=== PATIENT | male | born 1980 | race Caucasian/White ===

== ENCOUNTER 2023-08-06 13:40 | Emergency (ER) | payer OTHER, BC, SELFPAY ==
[2023-08-06] VITALS (8 sets, daily range): BP systolic 118–144; BP diastolic 73–95; PULSE 78–97; RESP 16; TEMP 36.4; O2SAT 98–100
[2023-08-06 16:16] LABS: Basophils Absolute Auto 0.1 K/mm3 (0.0-0.1); Basophils Percent Auto 0.7 % (0.2-1.2); Eosinophils Absolute Auto 0.2 K/mm3 (0-0.3); Eosinophils Percent Auto 2.2 % (0-4.4); Hematocrit 46.4 % (42.0-52.0); Immature Granulocyte Absolute 0.03 K/mm3 (0.00-0.031); Immature Granulocyte Percent A 0.3 % (0-0.5); Lymphocytes Absolute Auto 2.51 K/mm3 (0.9-3.2); Lymphocytes Percent Auto 26.4 % (18.3-44.2); Mean Corpuscular HGB Conc 34.5 g/dl (32-36); Mean Corpuscular Hemoglobin 30.7 pg (26-34); Mean Corpuscular Volume 88.9 fl (80-100); Mean Platelet Volume 9.9 fl (7.4-10.4); Monocytes Absolute Auto 0.9 K/mm3 (0.1-0.6); Monocytes Percent Auto 9.3 % (2.6-8.5); Neutrophils Absolute Auto 5.8 K/mm3 (1.3-6.7); Neutrophils Percent Auto 61.1 % (45.5-73.1); Platelet Count Result 233 k/mm3 (150-375); Red Blood Count 5.22 M/mm3 (4.6-6.20); Red Cell Distribution Width 12.8 % (11.5-14.5); White Blood Count 9.5 K/mm3 (4.5-10.0)
[2023-08-06 16:19] LABS: Glucose Point of Care 191 mg/dl (65-105)
--- NOTE | 2023-08-06 16:19 | ED.GENADULT ---
HPI - General Adult General Chief complaint: Extremity Problem,Nontraumatic Stated complaint: cellulitis right leg Time Seen by Provider: 08/06/23 15:41 Source: patient, RN notes reviewed and old records reviewed Mode of arrival: ambulatory Limitations: no limitations History of Present Illness HPI narrative: This is a 43 year old male with history of DM who presents for evaluation of possible right leg cellulitis. Patient states he has had right buttock abscess for 4 days that has been draining. He states his abscess was feeling better but then he noticed red rash to his right lower leg. He reports some drainage from the rash. He states this rash does not itch so he thinks he has cellulitis. He has also noticed that his blood sugars have been elevated to 400s over the past 4 days. He states his blood sugars are normally controlled. His last hemoglobin A1C was 7. He denies fever, chills, nausea, vomiting. Related Data Allergies Allergy/AdvReac Type Severity Reaction Status Date / Time No Known Allergies Allergy Verified 08/06/23 17:23 Review of Systems Constitutional: Constitutional: Denies weakness Cardiovascular: Cardiovascular: Denies syncope, Denies rapid heart rate, Denies irregular heart rhythm, Denies leg edema and Denies dyspnea Respiratory: Respiratory: Denies chest congestion, Denies hemoptysis, Denies excessive phlegm production and Denies dyspnea Gastrointestinal: Gastrointestinal: Denies abdominal pain, Denies hematochezia, Denies diarrhea and Denies vomiting Genitourinary: Genitourinary: Denies hematuria, Denies dysuria, Denies penile discharge and Denies testicular pain Musculoskeletal: Musculoskeletal: Denies joint swelling, Denies loss of height and Denies muscle weakness Integumentary/Breasts: Skin/Breast: Reports rash Neurologic: Denies syncope, Denies focal weakness and Denies weakness PMFSH Past Medical History Medical History (Updated 08/07/23 @ 00:00 by Background Daemon) Abscess Diabetes mellitus Hypertension Social History Social History (Updated 08/06/23 @ 16:20 by Shelley Lam MD) Smoking status: Current every day smoker Exam Const: General: no acute distress and alert Nutritional Appearance: well nourished Orientation/consciousness: patient oriented x3 HENMT: Head: normal to inspection Eyes: EOM: EOMs intact bilaterally Resp: Effort & Inspection: normal respiratory effort Cardio: Rate: regular rate Rhythm: regular rhythm Heart sounds: no murmurs GI: GI Palp: Yes Soft to palpation, No Tenderness to palpation present (GI), No Guarding due to palpation present (GI) and No Rigid due to palpation Auscultation: normal bowel sounds Skin: Wounds: wounds noted (right buttock with purulent draining abscess. no tenderness, ) Other: no necrotic tissue, no erythema right lower anterior leg with erythematous rash Neuro: General: patient oriented x3, moves all extremities and CN's II-XI intact bilaterally Extrem: General: no pedal edema Psych: Mental Status: mental status grossly normal Affect: normal affect Attitude: cooperative Course Reevaluation(s) Reevaluation #1: Patient labs are unremarkable. I discussed with patient that at this time there does not appear to be evidence of deep i nfection so agreeable with outpatient treatment at this time. I discussed return precaution if noticed skin color changes like necrosis, fever, vomiting, weakness. He states he understands return precautions. Date: 08/06/23 Time: 17:20 Vital Signs Vital signs: Vital Signs Temperature 97.5 F L 08/06/23 13:51 Pulse Rate 97 08/06/23 13:51 Respiratory Rate 16 08/06/23 13:51 Blood Pressure 142/83 H 08/06/23 13:51 Pulse Oximetry 98 08/06/23 13:51 Temperature 97.6 F 08/06/23 15:05 Pulse Rate 78 08/06/23 15:05 Respiratory Rate 16 08/06/23 15:05 Blood Pressure 119/81 08/06/23 17:01 Pulse Oximetry 100 08/06/23 15:05 Medical Carlyleisrose
[2023-08-06] MEDS: SODIUM CHLORIDE 0.9% IV 1,000 ML 999 ML IV CONT (16:20)
[2023-08-06 16:25] LABS: Lactic Acid Reflex 1.4 mmol/L (0.7-2.0)
[2023-08-06 16:31] LABS: Partial Thromboplastin Time 31.4 SECONDS (22.3-36.8); Prothrombin Time 13.3 Seconds (11.1-14.7)
[2023-08-06 16:32] LABS: Alanine Aminotransferase 18 U/L (6-50); Albumin Level 3.9 g/dL (3.5-5.1); Alkaline Phosphatase 79 U/L (38-126); Anion Gap 9 mmol/L (8-16); Aspartate Amino Transferase 23 U/L (17-59); Bilirubin,Total 0.6 mg/dL (0.2-1.3); Blood Urea Nitrogen 17 mg/dL (9-20); CRP 0.8 mg/dL (<1.0); Calcium 8.9 mg/dL (8.4-10.2); Carbon Dioxide 23 mmol/L (22-30); Chloride 102 mmol/L (98-107); Estimated CRCL calculation 125 ml/min; Estimated Glomerular Filt Rate > 60; Glucose 182 mg/dL (65-110); Potassium 4.4 mmol/L (3.4-5.0); Sodium 134 mmol/L (137-145)
[2023-08-06] MEDS: AMOXICILLIN/CLAVULANATE K 875-125 MG TAB 1 TABLET PO (17:24)
== END 2023-08-06 17:31 | disposition home or self-care (01) ==
PROVIDERS: Emergency Provider General Practice
DX: R21 Rash and other nonspecific skin eruption (principal); L02.31 Cutaneous abscess of buttock; E11.9 Type 2 diabetes mellitus without complications; I10 Essential (primary) hypertension; F17.200 Nicotine dependence, unspecified, uncomplicated
CPT/HCPCS: 36415; 80053; 82948; 83605; 85025; 85610; 85730; 86140; 96360; 99283; A9270; J7030

== ENCOUNTER 2024-05-23 09:15 | Outpatient (CLI) | payer OTHER, BC, SELFPAY ==
[2024-05-23 18:51] LABS: Basophils Absolute Auto 0.1 K/mm3 (0.0-0.1); Basophils Percent Auto 0.8 % (0.2-1.2); Eosinophils Absolute Auto 0.1 K/mm3 (0-0.3); Eosinophils Percent Auto 1.2 % (0-4.4); Hematocrit 49.6 % (42.0-52.0); Hemoglobin 17.2 g/dL (14.0-18.0); Immature Granulocyte Absolute 0.04 K/mm3 (0.00-0.031); Immature Granulocyte Percent A 0.4 % (0-0.5); Lymphocytes Absolute Auto 2.68 K/mm3 (0.9-3.2); Lymphocytes Percent Auto 24.5 % (18.3-44.2); Mean Corpuscular HGB Conc 34.7 g/dl (32-36); Mean Corpuscular Hemoglobin 30.3 pg (26-34); Mean Corpuscular Volume 87.3 fl (80-100); Mean Platelet Volume 10.1 fl (7.4-10.4); Monocytes Absolute Auto 0.8 K/mm3 (0.1-0.6); Monocytes Percent Auto 7.3 % (2.6-8.5); Neutrophils Absolute Auto 7.2 K/mm3 (1.3-6.7); Neutrophils Percent Auto 65.8 % (45.5-73.1); Platelet Count Result 260 k/mm3 (150-375); Red Blood Count 5.68 M/mm3 (4.6-6.20); Red Cell Distribution Width 12.8 % (11.5-14.5); White Blood Count 10.9 K/mm3 (4.5-10.0)
[2024-05-23 18:58] LABS: Alanine Aminotransferase 22 U/L (6-50); Albumin Level 4.1 g/dL (3.5-5.1); Alkaline Phosphatase 110 U/L (38-126); Anion Gap 10 mmol/L (4-12); Aspartate Amino Transferase 36 U/L (17-59); Bilirubin,Total 0.5 mg/dL (0.2-1.3); Blood Urea Nitrogen 14 mg/dL (9-20); Calcium 9.8 mg/dL (8.4-10.2); Carbon Dioxide 25 mmol/L (22-30); Chloride 99 mmol/L (98-107); Cholesterol 237 mg/dL (0-200); Estimated Glomerular Filt Rate > 60; Glucose 301 mg/dL (65-110); HDL Direct 38 mg/dL; Potassium 4.5 mmol/L (3.4-5.0); Sodium 134 mmol/L (137-145); Triglycerides 230 mg/dL (<150)
[2024-05-23 19:11] LABS: LDL Cholesterol Direct 150 mg/dL
[2024-05-23 20:59] LABS: Hemoglobin A1C 9.3 % (<5.7)
[2024-05-24 14:00] LABS: Creatinine Urine 165.8 mg/dL
[2024-05-24 14:04] LABS: MALB Creatinine Ratio 7.4 mg/g (0-30); Microalbumin Urine Random 12.2 mg/L (0-16.7)
[2024-05-26 15:43] LABS: Testosterone Free 73.3 pg/mL (35.0-155.0); Testosterone Total 264 ng/dL (250-1100)
[2024-06-02 19:04] LABS: Apolipoprotein B 146 mg/dL
== END 2024-05-23 09:16 | disposition home or self-care (01) ==
LOC: ANHGOSHLAB 09:18
PROVIDERS: PCP Internal Medicine; Visit Provider Internal Medicine
DX: I10 Essential (primary) hypertension (principal); E11.9 Type 2 diabetes mellitus without complications; N52.9 Male erectile dysfunction, unspecified
CPT/HCPCS: 36415; 80053; 80061; 82043; 82172; 83036; 84402; 84403; 85025

== ENCOUNTER 2024-06-16 08:06 | Outpatient (CLI) | payer OTHER, BC, SELFPAY ==
--- NOTE | ~2024-06-16 | MR_ITS ---
EXAMINATION: MR shoulder LT wo con DATE: 06/16/2024 08:48 INDICATION: Left shoulder pain. Rotator cuff tear. Adhesive capsulitis. TECHNIQUE: Magnetic resonance imaging (MRI) of the affected shoulder was performed without intravenou s contrast. Sequences included axial PD-weighted FS FSE, coronal oblique PD-weighted FS FSE, coronal oblique T2-weighted FS FSE, sagittal PD-weighted FS FSE, and sagittal T1-weighted SE. COMPARISON: None. FINDINGS: Coracoacromial arch: The acromion undersurface is curved in morphology (type II). The coracoacromial ligament is normal. M oderate acromioclavicular osteoarthritis. Rotator cuff: Mild supraspinatus tendinopathy without discrete tear. The interspaces, teres minor and subscapularis tendons are normal. No asymmetric rotator cuff muscle atrophy. There is mild epimysial edema at the medial side of the subscapularis muscle belly which could be seen with low-grade muscle strain. Biceps tendon, glenoid labrum and glenohumeral cartilage: Long head of the biceps tendon is normal. Glenoid labrum is normal. Glenohumeral cartilage is normal. Fluid: Physiologic amount of fluid in the glenohumeral joint and biceps tendon sheath. No loose osteochondr al bodies. Mild increased fluid signal in the subacromial/subdeltoid bursa consistent with minimal bu rsitis. Bones and other: Bone alignment is normal. No fracture or pathologic marrow replacing process. There is thickening of the right humeral joint capsule at the axillary recess and thickened soft tissue replacing the normal fat signal at the rotator cuff interval, both findings which can be seen in a semiinvasive capsuliti s which is a clinical diagnosis. IMPRESSION: 1. Mild supraspinatus tendinopathy without tear. 2. Mild epimysial edema at the medial side of the supraspinatus muscle belly consistent with low-grad e muscle strain. 3. Moderate acromioclavicular osteoarthritis. 4. Thickening of the internal capsule at the axillary recess and thickened soft tissue at the rotator cuff interval, both findings which can be seen with adhesive capsulitis which is a clinical diagnosi s. Reviewed, dictated and finalized at location A. IMPRESSION: 1. Mild supraspinatus tendinopathy without tear. 2. Mild epimysial edema at the medial side of the supraspinatus muscle belly co nsistent with low-grade muscle strain. 3. Moderate acromioclavicular osteoarthritis. 4. Thickening of the internal capsule at the axillary recess and thickened soft tissue at the rotator cuff interval, both findings which can be seen with adhe sive capsulitis which is a clinical diagnosis.
== END 2024-06-16 08:07 ==
LOC: GOSHIMG 08:06
PROVIDERS: PCP Internal Medicine; Visit Provider Internal Medicine
DX: M75.02 Adhesive capsulitis of left shoulder (principal); M75.102 Unspecified rotator cuff tear or rupture of left shoulder, not specified as traumatic; R60.9 Edema, unspecified; M19.012 Primary osteoarthritis, left shoulder
CPT/HCPCS: 73221

== ENCOUNTER 2024-08-04 00:40 | Day surgery (SDC) | payer OTHER, BC, SELFPAY ==
[2024-07-18 13:33] VITALS: BMI 32.1
[2024-08-04 09:07] VITALS: BP 150/98; PULSE 86; RESP 16; TEMP 36.1; O2SAT 86; BMI 32.3
[2024-08-04] MEDS: LACTATED RINGERS 1,000 ML 150 ML IV CONT (09:28)
[2024-08-04 09:31] LABS: Glucose Point of Care 140 mg/dl (65-105)
--- NOTE | 2024-08-04 09:52 | WPDANESEPPF ---
Anes - Initial Pre Proc Eval Procedure: Operation Date: 08/04/24 12:30 Proposed Procedures p Screening Colonoscopy - Brenton Martinez DO Date/Time: 08/04/24 09:52 Surgeon: Brenton Martinez DO Pre Op Diagnosis: Screening for malignant neoplasm of colon Patient Data Age: 44 Gender: M Height: 1.8 m Weight: 105 kg Last Vital Signs Temp 97.0 F L 08/04/24 09:07 Pulse 86 08/04/24 09:07 Resp 16 08/04/24 09:07 BP 150/98 H 08/04/24 09:07 Pulse Ox 86 L 08/04/24 09:07 O2 Del Method Room Air 08/04/24 09:07 Allergies Allergy/AdvReac Type Severity Reaction Status Date / Time No Known Allergies Allergy Verified 08/04/24 09:05 Home Medications Medication Instructions Recorded Confirmed Type insulin degludec 200 unit/mL (3 40 unit subcut DAILY 05/23/24 08/04/24 History mL) subcutaneous pen ([facility] [employer] FlexTouch U-200 insulin) lisinopril 20 mg tablet 20 mg PO DAILY 05/23/24 08/04/24 History metformin 1,000 mg tablet 1,000 mg PO BID 05/23/24 08/04/24 History omeprazole 20 mg capsule,delayed 20 mg PO BID 05/23/24 08/04/24 History release pioglitazone 30 mg tablet 30 mg PO DAILY 05/23/24 08/04/24 History tadalafil 20 mg tablet 20 mg PO DAILY PRN sexual activity 05/23/24 08/04/24 Rx #20 tabs rosuvastatin 10 mg tablet 10 mg PO DAILY #90 tabs 06/21/24 08/04/24 Rx semaglutide 2 mg/dose (8 mg/3 mL) 2 mg (0.75 mL) subcut WEEKLY #3 mL 06/21/24 08/04/24 Rx subcutaneous pen injector testosterone cypionate 200 mg/mL 140 mg (0.7 mL) IM WEEKLY #10 mL 06/21/24 08/04/24 Rx intramuscular oil (Depo-Testosterone) syringe with needle 3 mL 25 x 5/8 #50 ea 06/29/24 08/04/24 Rx (BD Eclipse Luer-Niels) Laboratory Tests 08/04/24 09:22 POC Capillary Glucose 140 H mg/dl (65-105) Patient hx anesthesia problems: none Family hx anesthesia problems: none Results Review: All pre-operative results and documents have been reviewed as part of the pre-operative evaluation. [facility] Past Medical History Medical History (Updated 06/21/24 @ 14:07 by Abdullahi Rosario DO) Abscess Adhesive capsulitis of left shoulder Diabetes mellitus Diabetes mellitus with hyperglycemia, with long-term current use of insulin Erectile dysfunction Essential hypertension GERD (gastroesophageal reflux disease) Hypertension Long-term current use of testosterone cypionate Tobacco abuse disorder Family History Family History Father Hypertension Grandparent Hypertension Heart problem Grandparent Heart problem Hypertension Social History Social History Smoking packs per day: 1.5 Smoking cigarettes per day: 30.0 Years smoked: 30 Smoking pack-years: 45.00 Smoking status: Current every day smoker Tobacco type: cigarettes Second hand tobacco smoke exposure: No Alcohol intake: never Substance use: never Substance use type: does not use Do You Feel Safe in your Home?: Yes Lack of Transportation: No Lack of Food: Never True Current Housing: I Have Housing Concerned About Future Housing: No Difficulty Paying Gas/Electric Bills: No Difficulty Paying for Meds: No Currently Unemployed: No Education: High School Diploma/GED Difficulty w/ Childcare or Family Care: No Living arrangements: with family Occupation/Education: occupation Gender identity (if verbalized by the patient): Male Sexual Orientation (if Verbalized by the Patient): Straight or Heterosexual Spiritual care concerns: No Agree to blood products: No Anes - Eval Final PreProcedure Day of Procedure 08/04/24 09:52 Patient weight: obese Heart: regular rate and rhythm Lungs: clear to auscultation Airway: Mallampati scale class II Neurological: alert and oriented Last oral intake: >/= 8 hours ASA classification: III Emergent: no Anesthetic plan: proceed Results R
--- NOTE | 2024-08-04 10:02 | PM.IMHP ---
H&P: HPI History of Present Illness Date/Time: 08/04/24 10:02 Chief Complaint: screening for colorectal cancer Narrative: this is a 44-year-old man who presents for colonoscopy. He has never had a colonoscopy before. He denies any hematochezia or melena but does have some occasional hemorrhoid bleeding. He denies any family history of cancer. Review of Systems Review of Systems: All systems reviewed & are unremarkable except as noted in HPI and below Constitutional: Constitutional: Denies chills, Denies fever(s), Denies headache(s) and Denies weight loss Eyes: Eyes: Denies change in vision ENT: Denies dizziness, Denies headache(s), Denies neck mass and Denies throat swelling Cardiovascular: Cardiovascular: Denies chest pain, Denies lightheadedness and Denies dyspnea Respiratory: Respiratory: Denies cough, Denies dyspnea and Denies wheezing Gastrointestinal: Gastrointestinal: Denies abdominal pain, Denies change in bowel habits, Denies nausea and Denies vomiting Genitourinary: Genitourinary: Denies hematuria and Denies dysuria Musculoskeletal: Musculoskeletal: Reports as per HPI Integumentary/Breasts: Skin/Breast: Reports as per HPI Neurologic: Denies dizziness and Denies headache(s) Allergic/Immunologic: Allergic/Immunologic: Denies throat swelling and Denies wheezing PMF Past Medical History Medical History (Updated 08/04/24 @ 10:03 by Brenton Martinez DO) Abscess Adhesive capsulitis of left shoulder Diabetes mellitus Diabetes mellitus with hyperglycemia, with long-term current use of insulin Erectile dysfunction Essential hypertension GERD (gastroesophageal reflux disease) Hypertension Long-term current use of testosterone cypionate Tobacco abuse disorder Family History Family History Father Hypertension Grandparent Hypertension Heart problem Grandparent Heart problem Hypertension Social History Social History Smoking packs per day: 1.5 Smoking cigarettes per day: 30.0 Years smoked: 30 Smoking pack-years: 45.00 Smoking status: Current every day smoker Tobacco type: cigarettes Second hand tobacco smoke exposure: No Alcohol intake: never Substance use: never Substance use type: does not use Do You Feel Safe in your Home?: Yes Lack of Transportation: No Lack of Food: Never True Current Housing: I Have Housing Concerned About Future Housing: No Difficulty Paying Gas/Electric Bills: No Difficulty Paying for Meds: No Currently Unemployed: No Education: High School Diploma/GED Difficulty w/ Childcare or Family Care: No Living arrangements: with family Occupation/Education: occupation Gender identity (if verbalized by the patient): Male Sexual Orientation (if Verbalized by the Patient): Straight or Heterosexual Spiritual care concerns: No Agree to blood products: No Meds Home Medications and Allergies Home Medications Medication Instructions Recorded Confirmed Type insulin degludec 200 unit/mL (3 40 unit subcut DAILY 05/23/24 08/04/24 History mL) subcutaneous pen ([employer] FlexTouch U-200 insulin) lisinopril 20 mg tablet 20 mg PO DAILY 05/23/24 08/04/24 History metformin 1,000 mg tablet 1,000 mg PO BID 05/23/24 08/04/24 History omeprazole 20 mg capsule,delayed 20 mg PO BID 05/23/24 08/04/24 History release pioglitazone 30 mg tablet 30 mg PO DAILY 05/23/24 08/04/24 History tadalafil 20 mg tablet 20 mg PO DAILY PRN sexual activity 05/23/24 08/04/24 Rx #20 tabs rosuvastatin 10 mg tablet 10 mg PO DAILY #90 tabs 06/21/24 08/04/24 Rx semaglutide 2 mg/dose (8 mg/3 mL) 2 mg (0.75 mL) subcut WEEKLY #3 mL 06/21/24 08/04/24 Rx subcutaneous pen injector testosterone cypionate 200 mg/mL 140 mg (0.7 mL) IM WEEKLY #10 mL 06/21/24 08/04/24 Rx intramuscular oil (Depo-Testosterone) syringe with needle 3 mL
[2024-08-04 10:52] VITALS: BP 115/71; PULSE 81; RESP 20; O2SAT 95
[2024-08-04 11:02] VITALS: BP 110/75; PULSE 80; RESP 18; O2SAT 94
[2024-08-04 11:12] VITALS: BP 131/92; PULSE 78; RESP 19; O2SAT 97
[2024-08-04 11:20] LABS: Glucose Point of Care 120 mg/dl (65-105)
== END 2024-08-04 11:25 | disposition home or self-care (01) ==
PROVIDERS: PCP Internal Medicine; Visit Provider Surgery
PROC: 0DJD8ZZ Inspection of Lower Intestinal Tract, Via Natural or Artificial Opening Endoscopic (ICD-10-PCS; CPT 45378; principal; 2024-08-04 12:30)
DX: Z12.11 Encounter for screening for malignant neoplasm of colon (principal); D12.0 Benign neoplasm of cecum; E11.65 Type 2 diabetes mellitus with hyperglycemia; I10 Essential (primary) hypertension; K21.9 Gastro-esophageal reflux disease without esophagitis; N52.9 Male erectile dysfunction, unspecified; F17.210 Nicotine dependence, cigarettes, uncomplicated; E66.9 Obesity, unspecified; Z68.32 Body mass index [BMI] 32.0-32.9, adult; Z79.4 Long term (current) use of insulin; Z79.84 Long term (current) use of oral hypoglycemic drugs; Z79.85 Long-term (current) use of injectable non-insulin antidiabetic drugs; Z82.49 Family history of ischemic heart disease and other diseases of the circulatory system
CPT/HCPCS: 45385; 82948; 88305; J2003; J2704; J7120

== ENCOUNTER 2024-09-27 08:56 | Outpatient (CLI) | payer BC, SELFPAY ==
[2024-09-27 12:56] LABS: Basophils Absolute Auto 0.1 K/mm3 (0.0-0.1); Basophils Percent Auto 0.9 % (0.2-1.2); Eosinophils Absolute Auto 0.3 K/mm3 (0-0.3); Eosinophils Percent Auto 3.2 % (0-4.4); Hematocrit 48.9 % (42.0-52.0); Hemoglobin 16.4 g/dL (14.0-18.0); Immature Granulocyte Absolute 0.02 K/mm3 (0.00-0.031); Immature Granulocyte Percent A 0.3 % (0-0.5); Lymphocytes Absolute Auto 2.19 K/mm3 (0.9-3.2); Lymphocytes Percent Auto 27.9 % (18.3-44.2); Mean Corpuscular HGB Conc 33.5 g/dl (32-36); Mean Corpuscular Volume 89.4 fl (80-100); Mean Platelet Volume 10.1 fl (7.4-10.4); Monocytes Absolute Auto 0.7 K/mm3 (0.1-0.6); Monocytes Percent Auto 8.8 % (2.6-8.5); Neutrophils Absolute Auto 4.6 K/mm3 (1.3-6.7); Neutrophils Percent Auto 58.9 % (45.5-73.1); Platelet Count Result 253 k/mm3 (150-375); Red Blood Count 5.47 M/mm3 (4.6-6.20); Red Cell Distribution Width 13.1 % (11.5-14.5); White Blood Count 7.9 K/mm3 (4.5-10.0)
[2024-09-27 13:15] LABS: Alanine Aminotransferase 11 U/L (6-50); Alkaline Phosphatase 67 U/L (38-126); Anion Gap 5 mmol/L (4-12); Aspartate Amino Transferase 40 U/L (17-59); Bilirubin,Total 0.6 mg/dL (0.2-1.3); Blood Urea Nitrogen 13 mg/dL (9-20); Carbon Dioxide 23 mmol/L (22-30); Chloride 109 mmol/L (98-107); Cholesterol 178 mg/dL (0-200); Estimated Glomerular Filt Rate > 60; Glucose 137 mg/dL (65-110); HDL Direct 38 mg/dL; Potassium 4.5 mmol/L (3.4-5.0); Sodium 137 mmol/L (137-145); Triglycerides 90 mg/dL (<150)
[2024-09-27 13:42] LABS: LDL Cholesterol Direct 108 mg/dL
[2024-09-27 13:44] LABS: Prostate Specific Antigen 0.7 ng/mL (< OR = 4.0)
[2024-09-27 13:54] LABS: Iron 94 ug/dL (49-181)
[2024-09-27 14:05] LABS: Percent Iron Saturation 25 % (20-50)
[2024-09-27 15:44] LABS: Hemoglobin A1C 7.3 % (<5.7)
[2024-09-28 08:08] LABS: LH 3.6 mIU/mL (1.5-9.3)
[2024-09-30 21:24] LABS: Testosterone Free 70.7 pg/mL (35.0-155.0); Testosterone Total 300 ng/dL (250-1100)
== END 2024-09-27 08:57 | disposition home or self-care (01) ==
LOC: ANHGOSHLAB 08:57
PROVIDERS: PCP Internal Medicine; Visit Provider Internal Medicine
DX: E29.1 Testicular hypofunction (principal); E11.9 Type 2 diabetes mellitus without complications; I10 Essential (primary) hypertension; Z79.890 Hormone replacement therapy
CPT/HCPCS: 36415; 80053; 80061; 82728; 83002; 83036; 83540; 83550; 84153; 84402; 84403; 84443; 85025

== ENCOUNTER 2025-03-31 08:08 | Outpatient (CLI) | payer OTHER, SELFPAY ==
--- OUTSIDE RECORDS SUMMARY | 2025-03-31 08:15 | XMS_ITS | Continuity of Care Document ---
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 . Family [...]
--- OUTSIDE RECORDS SUMMARY | 2025-03-31 08:15 | XMS_ITS | Clinical Summary ---
Author Organization [facility] Address [address] [place] [address] Care Team Providers Care Twenty One Dealer Name Role Phone Unavailable Primary Care Provider Unavailabl e Source Comments [facility],non-owned Affiliates and Associated Physician Practices is amultiple site organization consisting of ambulatory clinics and hospital sitesin [place], [place], [place] and [place]. This disclosure is being madepursuant to the Care Everywhere program and may not contain all information available regarding this patient. Last updated 18.[facility] [employer] Social History Tobacco Use Types Packs/Day Years Used Date Smoking Tobacco: Never Assessed Sex and Gender Information Value Date Recorded Sex Assigned at Not on file Legal Sex Male 1:03 PM CDT Gender Identity Not on file Sexual Orientation Not on file Plan of Treatment Health Maintenance Due Date Last Done Comments COLOGUARD (AGES 45-75) - COL ON CA SCREENING 1978 COLON MONITORING 1978 COLONOSCOPY - COLON CA SCREENING 1978 CT COLONOGRAPHY - COLON CA SCREENING 1978 Colorectal Cancer Screening 1978 FIT - COLON CA SCREENING 1978 FLEX SIG - COLON CA SCREENING 1978 LIPID TESTING 1978 HIV SCREENING 1993 HEPATITIS C SCREENING 07/30/1996 DTAP/TDAP/TD VACCINES (1 - Tdap) 1997 HEPATITIS B VACCINE (1 of 3 - 19+ 3-dose series) 1997 COVID-19 VACCINE (1 - 2023-2 5 season) 2024 DEPRESSION SCREENING 10/26/2024 INFLUENZA VACCINE (Season Ended) 2025 ZOSTER VACCINE (1 of 2) 2028 HIB VACCINE Aged Out No longer eligi ble based on patient's age to complete this topic HPV VACCINE Aged Out No longer eligi ble based on patient's age to complete this topic MENINGOCOCCAL (Group B) VACC INE SHARED DECISION-MAKING Aged Out No longer eligibl e based on patient's age to complete this topic MENINGOCOCCAL GROUPS A/C/Y/W VACCINE Aged Out No longer eligible b ased on patient's age to complete this topic PNEUMOCOCCAL VACCINE Aged Out No long er eligible based on patient's age to complete this topic Insurance [facility] SELF PAY NO INSURANCE Member Subscriber Plan / Payer (Ef fective for All Dates) Name:Marlon Garcia Member ID:Not on file Relation to Subscriber:Not on file Name:MARLON GARCIA Subscriber ID:Not on file (Home) Address: [address] [place] [phone] Payer ID:Not on file Group ID:Not on file Type:Self Pay Address: [place], [place] [employer]
[2025-03-31 12:15] LABS: Basophils Absolute Auto 0.1 K/mm3 (0.0-0.1); Eosinophils Absolute Auto 0.1 K/mm3 (0-0.3); Eosinophils Percent Auto 1.6 % (0-4.4); Immature Granulocyte Absolute 0.02 K/mm3 (0.00-0.031); Immature Granulocyte Percent A 0.2 % (0-0.5); Lymphocytes Percent Auto 27.6 % (18.3-44.2); Mean Corpuscular HGB Conc 32.7 g/dl (32-36); Mean Corpuscular Hemoglobin 29.6 pg (26-34); Mean Corpuscular Volume 90.6 fl (80-100); Mean Platelet Volume 10.1 fl (7.4-10.4); Monocytes Absolute Auto 0.8 K/mm3 (0.1-0.6); Monocytes Percent Auto 9.7 % (2.6-8.5); Neutrophils Percent Auto 59.9 % (45.5-73.1); Platelet Count Result 260 k/mm3 (150-375); Red Blood Count 5.74 M/mm3 (4.6-6.20); White Blood Count 8.3 K/mm3 (4.5-10.0)
[2025-03-31 12:39] LABS: Alanine Aminotransferase 19 U/L (6-50); Albumin Level 4.2 g/dL (3.5-5.1); Alkaline Phosphatase 70 U/L (38-126); Anion Gap 7 mmol/L (4-12); Aspartate Amino Transferase 63 U/L (17-59); Bilirubin,Total 0.3 mg/dL (0.2-1.3); Blood Urea Nitrogen 15 mg/dL (9-20); Calcium 9.5 mg/dL (8.4-10.2); Carbon Dioxide 26 mmol/L (22-30); Chloride 105 mmol/L (98-107); Cholesterol 186 mg/dL (0-200); Estimated Glomerular Filt Rate > 60; Glucose 152 mg/dL (65-110); HDL Direct 35 mg/dL; Potassium 4.7 mmol/L (3.4-5.0); Sodium 138 mmol/L (137-145); Total Protein 7.4 g/dL (6.3-8.2); Triglycerides 122 mg/dL (<150)
[2025-03-31 12:50] LABS: LDL Cholesterol Direct 110 mg/dL
[2025-03-31 13:10] LABS: Prostate Specific Antigen 0.8 ng/mL (< OR = 4.0)
[2025-03-31 13:18] LABS: Creatinine Urine 122.2 mg/dL
[2025-03-31 13:22] LABS: MALB Creatinine Ratio 5.4 mg/g (0-30); Microalbumin Urine Random 6.6 mg/L (0-16.7)
[2025-03-31 13:27] LABS: Hemoglobin A1C 6.2 % (<5.7)
[2025-04-05 15:03] LABS: Testosterone Free 78.7 pg/mL (35.0-155.0); Testosterone Total 355 ng/dL (250-1100)
== END 2025-03-31 08:09 | disposition home or self-care (01) ==
LOC: ANHGOSHLAB 08:11
PROVIDERS: PCP Internal Medicine; Visit Provider Internal Medicine
DX: I10 Essential (primary) hypertension (principal); E29.1 Testicular hypofunction; E11.65 Type 2 diabetes mellitus with hyperglycemia; Z79.4 Long term (current) use of insulin
CPT/HCPCS: 36415; 80053; 80061; 82043; 83036; 84153; 84402; 84403; 85025

== ENCOUNTER 2025-08-14 00:27 | Day surgery (SDC) | payer OTHER, SELFPAY ==
--- OUTSIDE RECORDS SUMMARY | 2023-05-14 18:59 | XMS_ITS | Continuity of Care Document ---
Author Organization [facility] Address [address] [place] [address] Phone Care Team Providers Care Ui Developer With [employer] Name Role Phone Interface, HMaint Import Unavailable Unavail able Medications Medication Instructions Dosage Effective Dates (start - stop) Status Comments No Drug Therapy Prescribed Advance Directives Directive Yes / No Effective Date File Name No Information Encounters Encounter Description Practice Location Reason(s) For Visit Diagnoses Date Provider Providers Copied on Encounter [facility], [address] [place] [address], [address], [place] tel:[phone] [facility] No Information Interface HMaint Import. . Family History Family Member Type Diagnosis Age At Onset No Information Payers Payer name Insurance type Covered democrat ID Authoriza tion(s) No Information Social History Type Description Quantity Date Captured Comments Sex Male Smoking Status No Information Chief Complaint And Reason For Visit No Information History Of Present Illness Encounter Date Complaint History Of Prese nt Illness No Information Medications Administered Medication Instructions Dosage Effective Dates (start - stop) Status Comments No Drug Therapy Prescribed Instructions Date Instruction Additional Infor mation No Information Assessments Type Assessment Date No Information
[2025-08-09 11:38] VITALS: BMI 30.7
--- OUTSIDE RECORDS SUMMARY | 2025-08-14 00:30 | XMS_ITS | Clinical Summary ---
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 This disclosure is being madepursuant to the Care Everywhere program and may not contain all information available regarding this patient. Last updated 18.[facility] [employer] Social History Tobacco Use Types Packs/Day Years [...] of 3 - 19+ 3-dose series) 1997 DEPRESSION SCREENING 10/26/2024 COVID-19 VACCINE (1 - 2023-2 5 season) 2025 INFLUENZA VACCINE (#1) 2025 ZOSTER VACCINE (1 of 2) 2028 [...] patient's age to complete this topic Insurance [facility] SELF PAY NO INSURANCE Member Subscriber Plan / Payer (Ef fective for All Dates) Name:Marlon Garcia Member ID:Not on file Relation to Subscriber:Not on file Name:MARLON GARCIA Subscriber ID:Not on file (Home) Address: [address] [place] [phone] Payer ID:Not on file Group ID:Not on file Type:Self Pay Address: [place], [place] [employer]
--- OUTSIDE RECORDS SUMMARY | 2025-08-14 00:30 | XMS_ITS | Clinical Summary ---
Author Organization [facility] Address [address] [place] [address] Care Team Providers Care Sustainability Manager Name Role Phone Abdullahi Rosario DO Primary Care Provider [phone] Allergies No known active allergies Medications omeprazole (PRILOSEC) 20 MG capsuleIndications: Gastroesophageal reflux disease with esophagitis without hemorrhage TAKE 1 CAPSULE BY MOUTH TWICE A DAY 60 capsule 4 Active rosuvastatin (CRESTOR) 5 MG tabletIndications:M ixed hyperlipidemia Take 1 tablet (5 mg total) by mouth nightly at bedtime. 30 tablet 4 Active lisinopril (PRINIVIL) 20 MG tabletIndications:P rimary hypertension Take 1 tablet (20 mg total) by mouth daily. 30 tablet 4 Active OZEMPIC 2 mg/dose injection (PEN)Indications:Di abetes Mellitus Inject 2 mg into the skin once a week. Indications: Diabetes 4 Active TRESIBA FLEXTOUCH 200 UNIT/ML injection (PEN)Indications:Ty pe 2 diabetes mellitus with hyperglycemia, with long-term current use of insulin ([facility]) Inject 40 Units into the skin nightly at bedtime. 18 mL 5 Active Insulin Pen Needle (PEN NEEDLES) 32G X 4 MM MiscIndications:Typ e 2 diabetes mellitus with hyperglycemia, with long-term current use of insulin ([facility]) Use to inject Tresiba Daily as directed. 100 each 1 5 Active metFORMIN (GLUCOPHAGE) 1000 MG tabletIndications:T ype 2 diabetes mellitus with hyperglycemia, with long-term current use of insulin ([facility]) TAKE 1 TABLET BY MOUTH TWICE A DAY WITH MEALS 60 tablet Active pioglitazone (ACTOS) 30 MG tabletIndications:T ype 2 diabetes mellitus with hyperglycemia, with long-term current use of insulin ([facility]) TAKE 1 TABLET BY MOUTH EVERY DAY 30 tablet 5 Active Active Problems Problem Noted Date Diagnosed Date Gastroesophageal reflux dise ase with esophagitis without hemorrhage 01/15/2024 Cigarette nicotine dependence without complicati on 04/20/2023 Elevated hemoglobin 09/29/2022 Chronic cough 09/29/2022 Smoker 09/29/2022 Mixed hyperlipidemia 09/08/2022 Type 2 diabetes mellitus wit h hyperglycemia, with long-term current use of insulin 09/08/2022 Primary hypertension 09/08/2022 Class 1 obesity due to exces s calories with serious comorbidity and body mass index (BMI) of 34.0 to 34.9 in adult 09/08/2022 Family History Medical History Relation Comments Diabetes Father Heart Disease Maternal Grandfather Diabetes Sister Relation Status Comments Father Maternal Grandfather Sister Social History Tobacco Use Types Packs/Day Years Used Date Smoking Tobacco: Every Day Cigarettes 1.5 15 Passive Smoke Exposure: Current Smokeless Tobacco: Never Tobacco Cessation:Ready to Q uit: No; Counseling Given: Yes Comments:PCP to agency legal counsel Alcohol Use Standard Drinks/Week Comments Yes 0 (1 standard drink = 0.6 oz pur e alcohol) very seldom PHQ-2 Answer Date Recorded Patient Health Questionnaire-2 Score 0 11/29/2024 Sex and Gender Information Value Date Recorded Sex Assigned at Not on file Legal Sex Male 5:25 PM CDT Gender Identity Not on file Sexual Orientation Not on file Last Filed Vital Signs Vital Sign Reading Time Taken Comments Blood Pressure 123/89 11/29/2024 9:58 AM ASSISTANT READING TEACHER Pulse 91 11/29/2024 9:58 AM ASSISTANT READING TEACHER Temperature 36.7 C (98 F) 11/29/2024 9:58 AM ASSISTANT READING TEACHER Respiratory Rate 18 01/15/2024 7:37 AM CDT Oxygen Saturation 97% 11/29/2024 9:58 AM ASSISTANT READING TEACHER Inhaled Oxygen Concentration - - Weight 101 kg (222 lb 9.6 oz) 11/29/2024 9:58 AM ASSISTANT READING TEACHER Height 177.8 cm (5' 10) 11/29/2024 9:58 AM ASSISTANT READING TEACHER Body Mass Index 31.94 11/29/2024 9:58 AM ASSISTANT READING TEACHER Plan of Treatment Health Maintenance Due Date Last Done Comments Colorectal Cancer Screening Colonoscopy (10 Years) 1980 Kidney Health Evaluation 1980 Annual Physical 1981 Hepatitis B Vaccines (1 of 3 - 19+ 3-dose series) 1997 Pneumococcal Vaccine: Pediatrics (0 to 5 Years) and At-Risk Patients (6 to 49 Years) (1 of 2 - PCV) 1997 Lipid Panel 09/08/2023 09/08/2022, 09/11/2020 Diabetes: Retinopathy Eye Exam 04/06/2025 04/06/2023 Hemoglobin A1C 05/29/2025 11/29/2024, 08/26, 03/16/2024, Additional history exists COVID-19 Vaccine ( - season) 2025 Influenza Adult (#1) 2025 DTaP, Tdap and Td Vaccines (1 - Tdap) 10/28/2029 Postponed from 1997 (Per Provider Recommendation) Hepatitis C 09/08/2052 Postponed from 1996 (Patient Refused) PHQ-2 (Physician [place]) Completed 11/29/2024 Hepatitis A Vaccines Aged Out No long er eligible based on patient's age to complete this topic Meningococcal B Vaccine Aged Out No l onger eligible based on patient's age to complete this topic Meningococcal Vaccine Aged Out No jossue carito eligible based on patient's age to complete this topic RSV Immunizations Under 20 Months Aged Out No longer eligible based on patient's age to complete this topic Procedures Procedure Name Priority Date/Time Associated Diagnosis Comments HEMOGLOBIN, GLYCOSYLATED Routine 11/29/2024 Type 2 diabetes mellitus with hyperglycemia, with long-term current use of insulin ([facility]) DIABETIC RETINOPATHY EXAM (NEGATIVE)(SCAN ORDER) Routine 04/06/2023 LIPID PANEL Routine 09/08/2022 10:05 AM ASSISTANT READING TEACHER Mixed hyperlipidemia from Last 3 Months or Most Recently Relevant to Health Maintenance Results * HEMOGLOBIN, GLYCOSYLATED (11/29/2024) HGB A1C 7.5 % [facility] Comment:provider reviewed in office 11/29/2024 Claudia Gusman MD LABORATORY Final Result [facility]AT[facility] [address] [address], [place] [phone] * DIABETIC RETINOPATHY EXAM (NEGATIVE)(SCAN) (04/06/2023) [facility] Scanned SCANNING Final Resu lt [facility] * (ABNORMAL) LIPID PANEL (09/08/2022 10:05 AM ASSISTANT READING TEACHER) CHOLESTEROL 257(H) 0 - 200 MG/DL 09/08/2022 3:17 PM ASSISTANT READING TEACHER [facility] TRIGLYCERIDES 311(H) 0 - 150 MG/DL 09/08/2022 3:17 PM ASSISTANT READING TEACHER [facility] HDL 44 >40 MG/DL 09/08/2022 3:17 PM ASSISTANT READING TEACHER [facility] LDL (CALCULATED) 151(H) <100 MG/DL 09/08/2022 3:17 PM ASSISTANT READING TEACHER [facility] NON HDL CHOLESTEROL 213(H) 0 - 130 MG/DL 09/08/2022 3:17 PM ASSISTANT READING TEACHER [facility] Comment: NOTE: WHEN THE TRIGLYCERIDES ARE >200 mg/dL, NON HDL C IS A SECONDARY TARGET OF THERAPY, WITH A GOAL 30 mg/dL HIGHER THAN THE IDENTIFIED LDL C GOAL. CHOL/HDL RATIO 5.8(H) 0.0 - 4.5 09/08/2022 3:17 PM ASSISTANT READING TEACHER [facility] VLDL CALCULATION 62(H) 5 - 55 MG/DL 09/08/2022 3:17 PM ASSISTANT READING TEACHER [facility] LIPID INTERPRETATION 09/08/2022 3:17 PM ASSISTANT READING TEACHER [facility] Comment: NIH CONCENSUS REPORT RECOMMENDATIONS: ADULT CHILD LOW RISK: CHOLESTEROL <200 <170 TRIGLYCERIDE <150 --- HDL >=60 --- LDL <100 <110 BORDERLINE: CHOLESTEROL 200-239 170-199 TRIGLYCERIDE 150-199 --- HDL 40-59 --- LDL 100-159 110-129 HIGH RISK: CHOLESTEROL >=240 >=200 TRIGLYCERIDE >=200 --- HDL <40 --- LDL >=160 >=130 09/08/2022 10:0 5 AM ASSISTANT READING TEACHER us Julieta Rojas X RAY CONTROL EQUIPMENT REPAIRER LABORATORY Final Resul t [facility] [address] [place] [address], from Last 3 Months or Most Recently Relevant to Health Maintenance Insurance Care Teams Sustainability Manager Relationship Specialty Start Date End Date Abdullahi Rosario DO [address] [facility] [address] [address] [address] [place], [place] [id number] PCP - General INTERNAL MEDICINE 05/26/24
--- OUTSIDE RECORDS SUMMARY | 2025-08-14 00:30 | XMS_ITS | Encounter Summary ---
Author Organization [facility] Address [facility] [place] [address] Care Team Providers Care Relief Salesperson Name Role Phone Julieta Rojas Primary Care Provider Jeet Quesada MD Primary Care Provider [phone] Abdullahi Rosario DO Primary Care Provider [phone] Encounter Details Date Type Department Care Team (Late st Contact Info) Description 01/08/2023 [facility] [place] Patient Accounts [address] [place] [address] [facility] INSURANCE INFORMATION Social History Tobacco Use Types Packs/Day Years Used Date Smoking Tobacco: Every Day Cigarettes 1.5 15 Smokeless Tobacco: Never Comments:PCP to crisis intervention counselor Alcohol Use Standard Drinks/Week Comments Not Currently 0 (1 standard drink = 0.6 oz pur e alcohol) very seldom PHQ-2 Answer Date Recorded Patient Health Questionnaire-2 Score 0 11/18/2022 Sex and Gender Information Value Date Recorded Sex Assigned at Not on file Legal Sex Male 5:25 PM CDT Gender Identity Not on file Sexual Orientation Not on file COVID-19 Exposure Response Date Recorded In the last 10 days, have yo u been in contact with someone who was confirmed or suspected to have Coronavirus/COVID-19? No / Unsure 12/12/2022 9:07 AM STRATEGIC ALLIANCES MANAGER documented as of this encounter Plan of Treatment Not on file documented as of this encounter Visit Diagnoses Not on filedocumented in this encounter Care Teams Relief Salesperson Relationship Specialty Start Date End Date Julieta Rojas FNP PCP - General FAMILY PRACTICE 09/08/22 05/24/24 Jeet Wise MD [address] [place] [address] [place] [address] PCP - General FAMILY PRACTICE 05/25/24 05/25/24 Abdullahi Rosario DO [address] [facility] [address] [place] [address] PCP - General INTERNAL MEDICINE 05/26/24 documented as of this encounter
[2025-08-14 06:21] VITALS: BP 126/83; PULSE 85; RESP 16; TEMP 36.4; O2SAT 98; BMI 31.1
[2025-08-14] MEDS: LACTATED RINGERS 1,000 ML 150 ML IV CONT (06:35)
--- NOTE | 2025-08-14 07:26 | P.PNAN_ITS ---
Anes - Initial Pre Proc Eval Procedure: Operation Date: 08/14/25 07:30 Proposed Procedures p Screening Colonoscopy - Brenton Martinez DO Date/Time: 08/14/25 07:26 Surgeon: Brenton Martinez DO Pre Op Diagnosis: colon polyps Patient Data Age: 45 Gender: M Height: 1.8 m Weight: 101.5 kg Last Vital Signs Temp 97.5 F L 08/14/25 06:21 Pulse 85 08/14/25 06:21 Resp 16 08/14/25 06:21 BP 126/83 08/14/25 06:21 Pulse Ox 98 08/14/25 06:21 O2 Del Method Room Air 08/14/25 06:21 Allergies Allergy/AdvReac Type Severity Reaction Status Date / Time No Known Allergies Allergy Verified 08/14/25 06:19 Home Medications ?Medication ?Instructions ?Recorded ?Confirmed ?Type insulin degludec 200 unit/mL (3 40 unit subcut DAILY 0 05/23/24 08/14/25 History mL) subcutaneous pen (Tresiba FlexTouch U-200 insulin) lisinopril 20 mg tablet 20 mg PO DAILY 05/23/2407/27 History metformin 1,000 mg tablet 1,000 mg PO BID 05/23/24 History omeprazole 20 mg capsule,delayed 20 mg PO BID 05/23/24 08/14/25 History release pioglitazone 30 mg tablet 30 mg PO DAILY 05/23/2407/27 History tadalafil 20 mg tablet 20 mg PO DAILY PRN sexual ac tivity 05/23/24 08/09/25 Rx #20 tabs testosterone cypionate 200 mg/mL 140 mg (0.7 mL) IM WE EKLY #10 mL 06/21/24 08/09/25 Rx intramuscular oil (Depo-Testosterone) needle (disp) 18 G 18 gauge x 1 #100 ea 10/03/2403/26 Rx (BD Regular Bevel [place]) syringe with needle 3 mL 25 x 5/8 #100 ea 10/03/24 Rx (BD Eclipse Luer-Niels) rosuvastatin 20 mg tablet (Crestor) 20 mg PO DAILY #90 tabs 04/06/25 08/14/25 Rx semaglutide 2 mg/dose (8 mg/3 mL) 2 mg (0.75 mL) subcu t WEEKLY #3 mL 05/01/25 08/09/25 Rx subcutaneous pen injector Laboratory Tests 08/14/25 06:25 POC Capillary Glucose 94 mg/dl (65-105) Patient hx anesthesia problems: none Family hx anesthesia problems: none Results Review: All pre-operative results and documents have been reviewed as part of the pre- operative evaluation. [facility] Past Medical History Medical History Type 2 diabetes mellitus with insulin therapy Diabetes mellitus with hyperglycemia, with long-term current use of insulin Long-term current use of testosterone cypionate Tobacco abuse disorder Erectile dysfunction Adhesive capsulitis of left shoulder Essential hypertension GERD (gastroesophageal reflux disease) Hypertension Abscess Diabetes mellitus Family History Family History Father Hypertension Grandparent Hypertension Heart problem Grandparent Heart problem Hypertension Social History Social History Smoking packs per day: 2 Smoking cigarettes per day: 40.0 Years smoked: 25 Smoking pack-years: 50.00 Smoking status: Current every day smoker Tobacco type: cigarettes Second hand tobacco smoke exposure: No Alcohol intake: never Substance use: never Substance use type: does not use Do You Feel Safe in your Home?: Yes Lack of Transportation: No Lack of Food: Never True Current Housing: I Have Housing Concerned About Future Housing: No Difficulty Paying Gas/Electric Bills: No Difficulty Paying for Meds: No Currently Unemployed: No Education: High School Diploma/GED Difficulty w/ Childcare or Family Care: No Living arrangements: with family Occupation/Education: occupation Gender identity (if verbalized by the patient): Male Sexual Orientation (if Verbalized by the Patient): Straight or Heterosexual Spiritual care concerns: No Agree to blood products: No Anes - Eval Final PreProcedure Day of Procedure 08/14/25 07:26 Patient weight: obese Lungs: normal air movement Airway: Mallampati scale class II and special considerations (Edentulous. ) Neurological: alert and oriented Last oral intake: >/= 8 hours ASA classification: III Emergent: no Anesthetic plan: proceed Anesthesia type and monitoring: general GIVS and standard monitoring Results Review: All pre-operative results and documents have been reviewed as part of the pre- operative evaluation. HTN, hyperlipidemia, Smoker 2 ppd for 30 years, smoked this am, DM fsbs 94. 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 Informed Consent: The patient's anesthetic plan and its attendant risks and benefits were discussed with the patient/family/POA. Questions were solicited and answers provided to the satisfaction of the patient/family/POA.
--- NOTE | 2025-08-14 07:32 | PM.IMHP ---
H&P: HPI History of Present Illness Date/Time: 08/14/25 07:32 Chief Complaint: History of colon polyps Narrative: This is a 45-year-old man who presents for colonoscopy. He last had a colonoscopy 1 year ago and multiple polyps were removed. He denies any hematochezia or melena. He was poorly prepped with the last colonoscopy therefore it was recommended to repeat 1 year. Review of Systems Review of Systems: All systems reviewed & are unremarkable except as noted in HPI and below Constitutional: Constitutional: Denies chills, Denies fever(s), Denies headache(s) and Denies weight loss Eyes: Eyes: Denies change in vision ENT: Denies dizziness, Denies headache(s), Denies neck mass and Denies throat swelling Cardiovascular: Cardiovascular: Denies chest pain, Denies lightheadedness and Denies dyspnea Respiratory: Respiratory: Denies cough, Denies dyspnea and Denies wheezing Gastrointestinal: Gastrointestinal: Denies abdominal pain, Denies change in bowel habits, Denies nausea and Denies vomiting Genitourinary: Genitourinary: Denies hematuria and Denies dysuria Musculoskeletal: Musculoskeletal: Reports as per HPI Integumentary/Breasts: Skin/Breast: Reports as per HPI Neurologic: Denies dizziness and Denies headache(s) Allergic/Immunologic: Allergic/Immunologic: Denies throat swelling and Denies wheezing PMF Past Medical History Medical History Type 2 diabetes mellitus with insulin therapy Diabetes mellitus with hyperglycemia, with long-term current use of insulin Long-term current use of testosterone cypionate Tobacco abuse disorder Erectile dysfunction Adhesive capsulitis of left shoulder Essential hypertension GERD (gastroesophageal reflux disease) Hypertension Abscess Diabetes mellitus Family History Family History Father Hypertension Grandparent Hypertension Heart problem Grandparent Heart problem Hypertension Social History Social History Smoking packs per day: 2 Smoking cigarettes per day: 40.0 Years smoked: 25 Smoking pack-years: 50.00 Smoking status: Current every day smoker Tobacco type: cigarettes Second hand tobacco smoke exposure: No Alcohol intake: never Substance use: never Substance use type: does not use Do You Feel Safe in your Home?: Yes Lack of Transportation: No Lack of Food: Never True Current Housing: I Have Housing Concerned About Future Housing: No Difficulty Paying Gas/Electric Bills: No Difficulty Paying for Meds: No Currently Unemployed: No Education: High School Diploma/GED Difficulty w/ Childcare or Family Care: No Living arrangements: with family Occupation/Education: occupation Gender identity (if verbalized by the patient): Male Sexual Orientation (if Verbalized by the Patient): Straight or Heterosexual Spiritual care concerns: No Agree to blood products: No Meds Home Medications and Allergies Home Medications ?Medication ?Instructions ?Recorded ?Confirmed ?Type insulin degludec 200 unit/mL (3 40 unit subcut DAILY 05/23/24 08/14/25 History mL) subcutaneous pen (Tresiba FlexTouch U-200 insulin) lisinopril 20 mg tablet 20 mg PO DAILY 05/23/24 08/14/25 History metformin 1,000 mg tablet 1,000 mg PO BID 05/23/24 08/14/25 History omeprazole 20 mg capsule,delayed 20 mg PO BID 05/23/24 08/14/25 History release pioglitazone 30 mg tablet 30 mg PO DAILY 05/23/24 08/14/25 History tadalafil 20 mg tablet 20 mg PO DAILY PRN sexual activity 05/23/24 08/09/25 Rx #20 tabs testosterone cypionate 200 mg/mL 140 mg (0.7 mL) IM WEEKLY #10 mL 06/21/24 08/09/25 Rx intramuscular oil (Depo-Testosterone) needle (disp) 18 G 18 gauge x 1 #100 ea 10/03/24 04/04/25 Rx (BD Regular Bevel [place]) syringe with needle 3 mL 25 x 5/8 #100 ea 10/03/24 04/04/25 Rx (BD Eclipse Luer-Niels) rosuvastatin 20 mg tablet (Crestor) 20 mg PO DAILY #90 tabs 04/06/25 08/14/25 Rx semaglutide 2 mg/dose (8 mg/3 mL) 2 mg (0.75 mL) subcut WEEKLY #3 mL 05/01/25 08/09/25 Rx subcutaneous pen injector Allergies Allergy/AdvReac Type Severity Reaction Status Date / Time No Known Allergies Allergy Verified 08/14/25 06:19 Vital Signs Vital Signs - 24 hr 08/14/25 06:21 Temperature 97.5 F L Pulse Rate 85 Respiratory Rate 16 Blood Pressure 126/83 Pulse Oximetry 98 Oxygen Delivery Room Air Exam Const: General: no acute distress and alert Orientation/consciousness: patient oriented x3 HENMT: Head: normocephalic and atraumatic Ears: hearing grossly normal bilaterally Face/Nose/Sinus: Normal nares present Mouth: Yes Normal oral and palatal mucosa present Eyes: Periorbital: periorbital findings normal Sclera: sclerae normal EOM: EOMs intact bilaterally Neck: Neck: normal visual inspection, no lymphadenopathy and trachea midline Chest: Chest palpation & inspection: normal inspection of the chest Resp: Effort & Inspection: normal respiratory effort Auscultation: clear to auscultation bilaterally Cardio: Jugular venous distension: no JVD Rate: regular rate Rhythm: regular rhythm Heart sounds: S1 normal heart sound present and S2 normal heart sound present Peripheral pulses: Peripheral pulses 2+ throughout GI: Inspection: normal to inspection GI Palp: Yes Soft to palpation, No Tenderness to palpation present (GI), No Guarding due to palpation present (GI) and No Rebound tenderness present Percussion: Yes normal to percussion Auscultation: normal bowel sounds : General: Yes no CVA tenderness Back/Spine/Pelvis: Back: no CVA tenderness Neuro: General: patient oriented x3, no focal motor deficits and CN's II-XI intact bilaterally Cognition (Neuro): normal cognition Speech: normal speech Motor exam (neuro): 5/5 motor strength present throughout Extrem: General: capillary refill normal and no clubbing, cyanosis or edema Assessment and Plan Assessment and plan (1) Hx of colonic polyps: Code(s): Z86.0100 - Personal history of colon polyps, unspecified Status: Acute Assessment and Plan: I have recommended colonoscopy. I have discussed the procedure, risks, benefits, and alternatives. Questions were answered. Patient is agreeable to proceed.
--- NOTE | 2025-08-14 07:58 | S_PTH ---
PATIENT: Marlon Garcia LOC: [facility] Fry#:[id number] AGE/SX: 45/M ROOM: RE08/14/[address]: Brenton Martinez DO : 1980 BED: DIS: 08/14/2025 SPEC #: [id number] RECD: 08/14/25 10:12 STATUS: KIMBER REQ #: [id number] SAMUEL: 08/14/25 07:[address]: Brenton Martinez DEPT: [facility] Surgical RECD BY: Tonya Epps ENTERED: 08/14/25 10:13 SP TYPE: Surgical OTHR DR: Abdullahi Rosario DO Tissues: A - Colon Polypectomy B - Colon Polypectomy Procedures: Hematoxylin and Eosin Stain Gross and Microscopic Level 4
[2025-08-14 08:03] VITALS: BP 95/52; PULSE 74; RESP 17; O2SAT 98
[2025-08-14 08:13] VITALS: BP 110/66; PULSE 76; RESP 17; O2SAT 99
[2025-08-14 08:23] VITALS: BP 110/64; PULSE 70; RESP 17; O2SAT 100
== END 2025-08-14 08:28 | disposition home or self-care (01) ==
PROVIDERS: PCP Internal Medicine; Visit Provider Surgery
PROC: 0DJD8ZZ Inspection of Lower Intestinal Tract, Via Natural or Artificial Opening Endoscopic (ICD-10-PCS; CPT 45378; principal; 2025-08-14 07:30)
DX: Z09 Encounter for follow-up examination after completed treatment for conditions other than malignant neoplasm (principal); D12.2 Benign neoplasm of ascending colon; D12.3 Benign neoplasm of transverse colon; I10 Essential (primary) hypertension; E78.5 Hyperlipidemia, unspecified; E11.65 Type 2 diabetes mellitus with hyperglycemia; K21.9 Gastro-esophageal reflux disease without esophagitis; N52.9 Male erectile dysfunction, unspecified; F17.210 Nicotine dependence, cigarettes, uncomplicated; E66.9 Obesity, unspecified; Z68.31 Body mass index [BMI] 31.0-31.9, adult; Z79.4 Long term (current) use of insulin; Z79.84 Long term (current) use of oral hypoglycemic drugs; Z79.85 Long-term (current) use of injectable non-insulin antidiabetic drugs; Z79.890 Hormone replacement therapy; Z82.49 Family history of ischemic heart disease and other diseases of the circulatory system
CPT/HCPCS: 45385; 82948; 88305; J2003; J2371; J2704; J7120

== ENCOUNTER 2025-08-21 09:48 | Outpatient (CLI) | payer OTHER, SELFPAY ==
--- OUTSIDE RECORDS SUMMARY | 2025-08-21 10:54 | XMS_ITS | Clinical Summary ---
Author Organization [facility] Address [address] [place] [address] Care Team Providers Care State'S Attorney Name Role Phone Unavailable Primary Care Provider Unavailabl e Source Comments [facility],non-owned Affiliates and Associated Physician Practices is amultiple site organization consisting of ambulatory clinics and hospital sitesin [place], [place], [place] and [place]. This disclosure is being madepursuant to the Care Everywhere program and may not contain all information available regarding this patient. Last updated 18.[facility] [place] Social History Tobacco Use Types Packs/Day Years [...] age to complete this topic Insurance [facility] SELF PAY NO INSURANCE Member Subscriber Plan / Payer (Ef fective for All Dates) Name:Marlon Garcia Member ID:Not on file Relation to Subscriber:Not on file Name:MARLON GARCIA Subscriber ID:Not on file (Home) Address: [address] [place] [id number] Payer ID:Not on file Group ID:Not on file Type:Self Pay Address: [place], [place] [facility]
--- OUTSIDE RECORDS SUMMARY | 2025-08-21 10:55 | XMS_ITS | Clinical Summary ---
Author Organization [facility] Address [address] [place] [address] Care Team Providers Care Senior Licensing Manager Name Role Phone Abdullahi Rosario DO Primary Care Provider [phone] Allergies No known active allergies Medications omeprazole [...] hyperglycemia, with long-term current use of insulin ([facility]) Inject 40 Units into the skin nightly at bedtime. 18 mL 5 Active Insulin Pen Needle (PEN NEEDLES) 32G X 4 MM MiscIndications:Typ e 2 diabetes mellitus with hyperglycemia, with long-term current use of insulin ([facility]) Use to inject Tresiba Daily as directed. 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 Alcohol Use Standard Drinks/Week Comments Yes 0 [...] Comments Blood Pressure 123/89 11/29/2024 9:58 AM [facility] Pulse 91 11/29/2024 9:58 AM [facility] Temperature 36.7 C (98 F) 11/29/2024 9:58 AM [facility] Respiratory Rate 18 01/15/2024 7:37 AM CDT Oxygen Saturation 97% 11/29/2024 9:58 AM [facility] Inhaled Oxygen Concentration - - Weight 101 kg (222 lb 9.6 oz) 11/29/2024 9:58 AM [facility] Height 177.8 cm (5' 10) 11/29/2024 9:58 AM [facility] Body Mass Index 31.94 11/29/2024 9:58 AM [facility] Plan of Treatment Health Maintenance Due Date [...] 08/26, 03/16/2024, Additional history exists COVID-19 Vaccine (1 - season) 2025 Influenza Adult (#1) 2025 DTaP, Tdap and Td Vaccines (1 - Tdap) 10/28/2029 Postponed from 1997 (Per Provider Recommendation) Hepatitis C 09/08/2052 Postponed from 1996 (Patient Refused) PHQ-2 (Physician [place]) Completed 11/29/2024 Hepatitis A Vaccines Aged Out [...] hyperglycemia, with long-term current use of insulin ([facility]) DIABETIC RETINOPATHY EXAM (NEGATIVE)(SCAN ORDER) Routine 04/06/2023 LIPID PANEL Routine 09/08/2022 10:05 AM [facility] Mixed hyperlipidemia from Last 3 Months or Most Recently Relevant to Health Maintenance Results * HEMOGLOBIN, GLYCOSYLATED (11/29/2024) HGB A1C 7.5 % [facility] Comment:provider reviewed in office 11/29/2024 Claudia Gusman MD LABORATORY Final Result [facility] [address] [address], [place] [phone] * DIABETIC RETINOPATHY EXAM (NEGATIVE)(SCAN) (04/06/2023) [facility] Scanned SCANNING Final Resu lt [facility] * (ABNORMAL) LIPID PANEL (09/08/2022 10:05 AM [facility]) CHOLESTEROL 257(H) 0 - 200 MG/DL 09/08/2022 3:17 PM [facility] TRIGLYCERIDES 311(H) 0 - 150 MG/DL 09/08/2022 3:17 PM [facility] HDL 44 >40 MG/DL 09/08/2022 3:17 PM [facility] LDL (CALCULATED) 151(H) <100 MG/DL 09/08/2022 3:17 PM [facility] NON HDL CHOLESTEROL 213(H) 0 - 130 MG/DL 09/08/2022 3:17 PM [facility] Comment: NOTE: WHEN THE TRIGLYCERIDES ARE >200 mg/dL, NON HDL C IS A SECONDARY TARGET OF THERAPY, WITH A GOAL 30 mg/dL HIGHER THAN THE IDENTIFIED LDL C GOAL. CHOL/HDL RATIO 5.8(H) 0.0 - 4.5 09/08/2022 3:17 PM [facility] VLDL CALCULATION 62(H) 5 - 55 MG/DL 09/08/2022 3:17 PM [facility] LIPID INTERPRETATION 09/08/2022 3:17 PM [facility] Comment: [facility] CONCENSUS REPORT RECOMMENDATIONS: ADULT CHILD LOW RISK: CHOLESTEROL <200 <170 TRIGLYCERIDE <150 --- HDL >=60 --- LDL <100 <110 BORDERLINE: CHOLESTEROL 200-239 170-199 TRIGLYCERIDE 150-199 --- HDL 40-59 --- LDL 100-159 110-129 HIGH RISK: CHOLESTEROL >=240 >=200 TRIGLYCERIDE >=200 --- HDL <40 --- LDL >=160 >=130 09/08/2022 10:0 5 AM [facility] us Julieta Rojas MANAGER CARE LABORATORY Final Resul t [facility] [address] [place] [address], from Last 3 Months or Most Recently Relevant to Health Maintenance Insurance Care Teams Senior Licensing Manager Relationship Specialty Start Date End Date Abdullahi Rosario DO [address] [place], [place] [id number] PCP - General INTERNAL MEDICINE 05/26/24
--- OUTSIDE RECORDS SUMMARY | 2025-08-21 10:55 | XMS_ITS | Encounter Summary ---
Author Organization [facility] Address [facility] [place] [address] Care Team Providers Care Spot Machine Operator Name Role Phone Julieta Rojas Primary Care Provider Jeet Quesada MD Primary Care Provider [phone] Abdullahi Rosario DO Primary Care Provider [phone] Encounter Details Date Type Department Care Team (Late st Contact Info) Description 01/08/2023 [employer] [facility] Patient Accounts [address] [place] [address] [email or web address] Provider INSURANCE INFORMATION Social History Tobacco Use Types Packs/Day Years Used Date Smoking Tobacco: Every Day Cigarettes 1.5 15 Smokeless Tobacco: Never 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 No / Unsure 12/12/2022 9:07 AM JOY LOADER documented as of this encounter Plan of Treatment Not on file documented as of this encounter Visit Diagnoses Not on filedocumented in this encounter Care Teams Spot Machine Operator Relationship Specialty Start Date End Date Julieta Rojas FNP PCP - General FAMILY PRACTICE 09/08/22 05/24/24 Jeet Wise MD [address] [place] [address] [place] [address] PCP - General FAMILY PRACTICE 05/25/24 05/25/24 Abdullahi Rosario DO [address] [place] [address] PCP - General INTERNAL MEDICINE 05/26/24 documented as of this encounter
[2025-08-21 13:31] LABS: Alanine Aminotransferase 16 U/L (6-50); Albumin Level 3.9 g/dL (3.5-5.1); Alkaline Phosphatase 72 U/L (38-126); Aspartate Amino Transferase 58 U/L (17-59); Bilirubin,Total 0.3 mg/dL (0.2-1.3); Cholesterol 138 mg/dL (0-200); HDL Direct 35 mg/dL; Total Protein 6.8 g/dL (6.3-8.2); Triglycerides 75 mg/dL (<150)
[2025-08-21 15:34] LABS: Hemoglobin A1C 5.8 % (<5.7)
== END 2025-08-21 09:49 | disposition home or self-care (01) ==
LOC: ANHGOSHLAB 09:49
PROVIDERS: PCP Internal Medicine; Visit Provider Internal Medicine
DX: E11.65 Type 2 diabetes mellitus with hyperglycemia (principal); R74.8 Abnormal levels of other serum enzymes; Z79.4 Long term (current) use of insulin
CPT/HCPCS: 36415; 80061; 80076; 82172; 83036